=== PATIENT | female | born 1960 | race Caucasian/White ===

== ENCOUNTER → 2017-05-23 22:16 | Outpatient (CLI) | payer OTHER, SELFPAY ==
[2017-05-27 06:42] LABS: HPV Reflexed? NOT INDICATED
== END ==
PROVIDERS: Family Provider Family Medicine; PCP Family Medicine; Visit Provider Obstetrics & Gynecology
DX: Z12.4 Encounter for screening for malignant neoplasm of cervix (principal)
CPT/HCPCS: 88175; G0145

== ENCOUNTER → 2018-08-13 12:31 | Outpatient (CLI) | payer BC, SELFPAY ==
--- NOTE | 2018-08-13 12:36 | MRI_ITS ---
HISTORY: Pancreatitis. Attention common bile duct. K 85.90 patient has attacks 3-4 findings a month for foreign half years. Attacks are intense with anterior abdominal pain and vomiting. Technique: 3 plane T2 localizer, axial T2 fat sat, coronal T1, slightly different axial T2 fat sat, axial T1, 3-D reformats of the biliary system, coronal T2 fat sat, MRCP coronal, 3-D reformats again and another 3-D reformats performed on the acquisition scanner. Tendons series. 2 a and 64 images. No comparison imaging of any kind. Findings: There is mild intrahepatic biliary ductal dilatation. The left hepatic duct, near its terminus, is dilated to 8 mm. At its junction with the right hepatic duct, to form the common hepatic duct, the lumen narrows to 3 mm, equating to a 60% stenosis. The 8 mm, is a focal dilatation to the lumen. The most downstream portions of the right hepatic duct is only 4 mm, suggesting that the stenosis is actually only 25%, and the 8 mm dilatation is focal upstream dilatation to a stenosis. Overall the left hepatic ducts centrally are dilated to a slightly greater degree than the right. There is evidence of some irregular luminal contours, to the right system as well however. The gallbladder has been resected. A tiny cystic duct remnant is present. The common bile duct at its origin is slightly dilated to 8 mm. Within the pancreas, the common bile duct narrows to 4 mm. The pancreatic duct is normal. The common duct is normal. The duodenum is not abnormally dilated. The stomach is decompressed. The liver, spleen, pancreas, adrenal glands are normal. The aorta is without aneurysm. The kidneys may be mildly atrophic. The IVC is normal. Bowel gas pattern is normal. Visualized portions of spinal canal are widely patent. Lung bases are clear without effusions. MRI/MRCP Abdomen without Contrast IMPRESSION: Intra-and extrahepatic biliary ductal dilatation. The greatest dilatation of the intrahepatic bile ducts is to the downstream portion of the left hepatic duct 8 mm. Is 8 mm dilatation is likely a dilatation above the stenosis. There is perhaps a 25% stenosis to the downstream portion of the left hepatic duct where it joins to form the common hepatic duct. There is some irregular contour throughout the liver and both left and right ducts suggesting possible cholangitis either acute or chronic. The common bile duct distally, within the pancreatic head, just cranial to the common duct, is normal at 4 mm. Slight dilatation to the common bile duct is not uncommon post cholecystectomy as in this case. No choledocholithiasis. at 0250 Reported and signed by: Gray Valdes MD Electronically Signed: Gray Valdes MD at 2:49 EDT Tel , Service support ,
== END ==
PROVIDERS: Family Provider Nurse Practitioner Primary Care; PCP Nurse Practitioner Primary Care; Referring Provider Internal Medicine Gastroenterology; Visit Provider Internal Medicine Gastroenterology
DX: K85.90 Acute pancreatitis without necrosis or infection, unspecified (principal)
CPT/HCPCS: 74181

== ENCOUNTER 2020-05-27 17:09 | Observation (INO) | payer OTHER, SELFPAY ==
--- NOTE | 2020-05-19 13:57 | RAD_ITS ---
STUDY: X-RAY CHEST REASON FOR EXAM: Female, 59 years old. Preoperative evaluation. TECHNIQUE: Frontal and lateral views of the chest. COMPARISON: 08/18/2010 FINDINGS: The lungs are clear and expanded. There is no demonstrated pleural abnormality. Normal size heart. Normal mediastinum and rosalva. Normal visualized pulmonary arteries. Normal visualized aortic arch and descending thoracic aorta. Normal visualized thoracic spine. Normal visualized ribs, clavicles, and shoulders. There is no demonstrated abnormality of the visualized soft tissue structures of the upper abdomen. RAD/Chest PA and Lateral IMPRESSION: No interval change and no acute or active cardiopulmonary disease. Electronically Signed: Sergey Seth MD at 16:00 EST , Service support ,
[2020-05-27] VITALS (14 sets, daily range): BP systolic 100–147; BP diastolic 55–80; PULSE 52–92; RESP 16–20; TEMP 35.7–36.9; O2SAT 96–100; BMI 29.5
[2020-05-27] MEDS: Lactated Ringers 1,000 ML 100 ML IV ×4 (10:48→18:11)
[2020-05-27 11:20] LABS: Potassium 3.9 mmol/L (3.5-5.1)
[2020-05-27] MEDS: Cefazolin 2 GM in 0.9% Normal Saline 100 ML IV (11:27)
--- NOTE | 2020-05-27 11:35 | RAD_ITS ---
STUDY: X-RAY - LUMBAR SPINE REASON FOR EXAM: Female, 59 years old. L3-L4 LAMINECTOMY TECHNIQUE: 2 cross table view(s) of the lumbar spine were obtained. COMPARISON: None FINDINGS: Crosstable lateral lumbar imaging is performed. Image 1 identifies the inferior endplate of L4. Image 2 identifies the L3-4 disc space. RAD/Spine 1 View Any Level IMPRESSION: Crosstable lateral lumbar imaging identifies the inferior endplate of L4 and the L3-4 disc space. Electronically Signed: Olena Iglesias MD at 15:50 EDT , Service support ,
[2020-05-27] MEDS: Thrombin 5,000 IU Kit (PSA) 5,000 IU Vial 5000 IU TOPICAL (12:49)
[2020-05-27] MEDS: Bupivacaine 0.25% 30 ML Vial (14:45)
--- NOTE | 2020-05-27 14:59 | OP.PCM_ITS ---
Problem List (1) Spondylosis of lumbar spine Status: Acute Report of Operation Date of Procedure: 05/27/20 Pre-Operative Diagnosis: 1. Lumbar spondylosis with stenosis, L3-4 and L4-5. 2. Lumbar degenerative disc disease L3-4 and L4-5 Post-Operative Diagnosis: 1. Lumbar spondylosis with stenosis, L3-4 and L4-5. 2. Lumbar degenerative disc disease L3-4 and L4-5 Surgery/Procedure Performed:: 1. Bilateral L3 laminectomy, foraminotomies, decompression of bilateral nerve roots. 2. Bilateral L4 laminectomy, foraminotomies, decompression of bilateral nerve roots Type of Anesthesia:: General Drains: Hemovac Estimated Blood Loss (mL): 75 Fluids Replaced: 2000 cc Description of Procedure: STATEMENT OF MEDICAL NECESSITY: The patient is a 59-year-old female with intractable back and leg pain. Image studies confirm above diagnosis. She has failed conservative treatment to include: medicine, therapy, and injections. The patient opted for operative intervention, understanding the risks to include, but not limited to infection, bleeding, damage to nerves, arteries, and veins, possibility of spinal fluid leak, continued pain, need for further surgery, deep vein thrombosis, pulmonary embolism, heart attack, risk of stroke, or . DESCRIPTION OF PROCEDURE: Before being wheeled in the operative suite, the patient's identity and surgery site were confirmed by the patient, staff, anesthesia and the surgeon. She was given preoperative antibiotics, Ancef, then the patient was wheeled into the operative suite and given the appropriate amount of sedation by anesthesia. The patient was transferred to the [place] operating table in the prone position. All bony prominences were padded accordingly. The lumbar spine was prepped and draped in standard surgical fashion. Freda huggers were not turned on until drapes were placed and sealed with Ioban. A Midline incision was made and taken down to the lumbodorsal fascia. This was divided and subperiosteal dissection taken down to the level of L3-4 and L4-5 facet joints. Deep retractors were placed. We began with the Baofeng sonix bone scalpel, then a series of rongeurs and Kerrisons removing the spinous process and lamina at L3, and L4. Then, foraminotomies were performed decompressing bilateral the L3 and L4 nerve roots. The incision was then thoroughly irrigated. Tissel was placed over the dura as a hemostatic agent. A deep drain was placed. Fascia was closed with #1 Vicryl, subcutaneous with 2-0 Vicryl, and skin with 2-0 nylon. Sterile dressing was applied with 4 x 4, ABD, and tape. Sponge, instrument, and needle counts were correct at the end of the case. The patient was extubated, taken to PACU without incident. - Complications None - Admit VTE Documentation VTE Present on Admission: No
--- NOTE | 2020-05-27 15:06 | PCM.DC.ORTHO ---
Discharge Diet: No Restrictions Discharge Activity: - - No repetitive bending twisting or lifting greater than 5 pounds May shower in (days): 1 - Must cover incision with waterproof dressing to shower Weight Bearing Status: Weight bearing as tolerated Call your doctor if your incision/area has: Continuous Slow Oozing, Sudden Increased Bleeding, Increased Pain/ Swelling, Increased Redness, Foul Smelling Discharge, Swelling at the incision site Call your doctor if you observe: Fever of 101 or Higher, Coldness, Increased Pain, Numbness or Tingling, Change in Color, Inability to urinate, Inability to have a bowel movement, Using more than one pad per hour, Shortness of breath, Dizziness, Fainting spells, Swelling in the ankles, Chest pain, Prolonged hiccoughing, Increased palpitations (irregular heartbeat), Calf discomfort, Uncontrolled pain Change Dressing in (Days):: 1 - Daily dressing changes with iodine to incision Cleanse incision/area with: Do not get Incision Wet, Keep Dressing Clean & Dry Allergies/Adverse Reactions: Allergies pirbuterol [From [employer]] Allergy (Verified 05/27/20 10:15) Other Tachycardia narcotics Adverse Reaction (Uncoded 05/27/20 10:16) Vomiting Medications to take at Discharge Biotin 5,000 mcg SL 05/13/20 Cholecalciferol (Vitamin D3) [Vitamin D3] 05/13/20 Diltiazem [Cardizem] 180 mg PO QHS 05/13/20 Iron Carbonyl [Feosol] 45 mg PO 05/13/20 Magnesium 400 mg PO 05/13/20 Mecobalamin [B12 Active] QWEEK 05/13/20 Multivitamin with Iron [Daily Vitamin + Iron] 05/13/20 Zinc 05/13/20 Primary Care Physician: Lelia Garcia [employer], [employer] [Primary Care Provider] - Test Results: Test results from this visit will be discussed in further detail at your follow-up appointment, if applicable. Please Follow Up With: Kavon Brown DO - 3 weeks
--- NOTE | 2020-05-27 15:26 | PCM.PN.ORT ---
Patient Problems: Active and Suspected Problems Spondylosis of lumbar spine (Acute) Subjective: The patient was seen and examined postoperatively in the PACU. She is resting comfortably. Her pain is controlled. She has no complaints. - Physical Exam Vitals/I&O's: Vital Signs Temp Pulse Resp BP Pulse Ox 96.3 F L 62 18 117/55 L 100 05/27/20 15:09 05/27/20 15:15 05/27/20 15:15 05/27/20 15:15 05/27/20 15:15 Oxygen Flow Rate (L/min) 6 Oxygen Delivery Method Simple Mask Weight: 161 lb 9.581 oz Body Mass Index (BMI) 29.5 Intake and Output for Last 24 Hours 05/25/20 05/26/20 05/27/20 23:59 23:59 23:59 Output Total 175 / 175 Balance -175 / -175 General: Alert, Oriented x3, Cooperative, No apparent distress HEENT: PERRLA, EOMI Neck: Supple, No JVD Lungs: Normal air movement Cardiovascular: Regular rate Abdomen: Soft, Non Tender Extremities: No cyanosis, Capillary Refill Less than 3 Seconds Skin: - - Dressing clean dry and intact, drain in place and functioning Neurological: Cranial nerves II-XII grossly intact, Deep Tendon Reflexes 2+/4 and Symmetrical, Neuro grossly intact, Motor Exam 5/5 strength throughout, Sensory exam intact to light touch and pain Psych/Mental Status: Normal Affect, Appropriate Microbiology Past 72 Hours 05/26/20 12:40 Interface Orders SARS-CoV-2 Antigen (Rapid) - Final Laboratory Results 05/27/20 11:05: Potassium 3.9 Current Medications Acetaminophen (Acetaminophen 500 Mg Tablet) 1,000 mg PO Q8 [facility] Enteral Nutritional Formula (Ensure Surgery 237 Ml Liquid) 237 ml PO TIDCM [facility] Lactated Ringer's () 1,000 mls @ 100 mls/hr IV .Q10H [facility] Cefazolin Sodium () 1 gm in 50 mls @ 100 mls/hr IV Q8H [facility] Morphine Sulfate (Morphine 4 Mg/Ml Syringe) 2 - 4 mg IV Q4H PRN PRN PRN Reason: Pain Score 6-10 Oxycodone HCl (Oxycodone 5 Mg Tablet) 2.5 - 5 mg PO Q4H PRN PRN PRN Reason: Pain Score 6-10 Medical Necessity - Tobacco Use Smoking Status: Never smoker Assessment/Plan All Active Problems Spondylosis of lumbar spine (Acute) Status post L3 and L4 laminectomy Admit to floor See orders
[2020-05-27] MEDS: Ondansetron 4 MG/2 ML Vial IV (18:13)
--- NOTE | 2020-05-27 18:32 | PCM.PN.HOSP ---
Patient Problems: Active and Suspected Problems Spondylosis of lumbar spine (Acute) Reason for Visit: Consult for postop medical management Subjective: 59-year-old female with past medical history of hypertension, hyperlipidemia chronic back pain, who failed outpatient management including back injections. Patient was admitted for elective L3-L4 laminectomy, foraminotomies, decompression of bilateral nerve roots. Patient was seen in the immediate postop period. She denied any chest pain or dizziness or palpitations. Her pain is controlled, 2 out of 10. Objective: Physical exam: GEN: Alert, oriented x3, stable, not pale, not jaundiced, well hydrated CVS: HS I +II, regular, no murmurs RESP: CTA ABD: BS present, soft, non-tender, no palpable organs EXT: No edema COUNT ROOM CLERK: CN II-XII grossly intact Vitals/I&O's: Vital Signs Temp Pulse Resp BP Pulse Ox 97.7 F L 66 18 122/63 H 97 05/27/20 17:07 05/27/20 17:07 05/27/20 17:07 05/27/20 17:07 05/27/20 17:07 Oxygen Flow Rate (L/min) 2 Oxygen Delivery Method Nasal Cannula Weight: 73.3 kg Body Mass Index (BMI) 29.5 Intake and Output for Last 24 Hours 05/25/20 05/26/20 05/27/20 23:59 23:59 23:59 Intake Total 1999 / 1999 Output Total 325 / 325 Balance 1675 / 1675 Microbiology Past 72 Hours 05/26/20 12:40 Interface Orders SARS-CoV-2 Antigen (Rapid) - Final Laboratory Results 05/27/20 11:05: Potassium 3.9 Current Medications Acetaminophen (Acetaminophen 500 Mg Tablet) 1,000 mg PO Q8H PRN PRN Reason: PAIN 1-3 Enteral Nutritional Formula (Ensure Surgery 237 Ml Liquid) 237 ml PO TIDCM [facility] Last Admin: 05/27/20 17:55 Dose: Not Given Documented by: Lactated Ringer's () 1,000 mls @ 100 mls/hr IV .Q10H [facility] Last Admin: 05/27/20 18:11 Dose: 100 mls/hr Documented by: Cefazolin Sodium () 1 gm in 50 mls @ 100 mls/hr IV Q8H [facility] Morphine Sulfate (Morphine 4 Mg/Ml Syringe) 2 - 4 mg IV Q4H PRN PRN PRN Reason: Pain Score 7-10 Morphine Sulfate (Morphine 2 Mg/Ml Syringe) 2 - 4 mg IV Q4H PRN PRN PRN Reason: Pain Score 7-10 Ondansetron HCl (Ondansetron 4 Mg/2 Ml Vial) 4 mg IV Q6H PRN PRN PRN Reason: NAUSEA Last Admin: 05/27/20 18:13 Dose: 4 mg Documented by: Oxycodone HCl (Oxycodone 5 Mg Tablet) 2.5 - 5 mg PO Q4H PRN PRN PRN Reason: Pain Score 4-6 Sodium Chloride (0.9% Saline Lock 10 Ml Syringe) 10 - 40 ml IV UD PRN PRN Reason: SALINE FLUSH STROKE Vital Signs/Narrative: Vital Signs Temp Pulse Resp BP Pulse Ox 05/27/20 17:07 97.7 F L 66 18 122/63 H 97 05/27/20 16:42 97.9 F 55 L 18 116/71 100 05/27/20 16:30 52 L 18 110/63 100 05/27/20 16:15 53 L 18 115/72 100 05/27/20 16:00 59 L 18 117/77 100 05/27/20 15:45 56 L 18 100/75 100 05/27/20 15:30 61 18 112/80 100 05/27/20 15:15 62 18 117/55 L 100 05/27/20 15:09 96.3 F L 73 18 120/59 L 100 Medical Necessity - Tobacco Use Smoking Status: Never smoker Assessment/Plan All Active Problems Spondylosis of lumbar spine (Acute) 1. Postop day #0 status post bilateral L3-L4 laminectomies Pain is fairly controlled, continue on Tylenol, oxycodone and morphine as needed Continue with other neurosurgical recommendations 2. Hypertension, controlled, continue on home Cardizem, with holding parameters 3. DVT prophylaxis?per primary service [place] [place] E&M: [id number] Init Hosp L2
[2020-05-27] MEDS: Cefazolin 1 GM/50 ML BAG IV (20:36)
[2020-05-27] MEDS: oxyCODONE 5 MG Tablet PO (20:43)
[2020-05-27] MEDS: dilTIAZem CD 180 MG Capsule PO (20:50)
[2020-05-28] VITALS (16 sets, daily range): BP systolic 97–119; BP diastolic 42–64; PULSE 76–93; RESP 16–20; TEMP 36.6–37.6; O2SAT 92–98
[2020-05-28] MEDS: Ondansetron 4 MG/2 ML Vial IV ×2 (01:18→07:41)
[2020-05-28] MEDS: 0.9% Saline Lock 10 ML Syringe IV ×4 (01:18→14:35)
[2020-05-28] MEDS: oxyCODONE 5 MG Tablet PO ×3 (01:18→09:27)
[2020-05-28] MEDS: Cefazolin 1 GM/50 ML BAG IV (04:15)
[2020-05-28 06:39] LABS: Absolute Lymphocyte Count 1.33 X10^3/uL (0.83-4.51); Basophil# 0.04 X10^3/uL; Basophil% 0.2 % (0-1); Hematocrit 35.6 % (37-47); Hemoglobin 11.8 g/dL (12.0-15.0); Lymphocyte # 1.33 X10^3/ul (4.0); Lymphocyte % 7.6 % (19-41); Mean Corp Hgb Conc 33.1 g/dL (32-36); Mean Corpuscular Hgb 30.4 pg (27.0-32.0); Mean Corpuscular Volume 91.8 fL (81-99); Monocyte# 1.08 X10^3/uL; Monocyte% 6.2 % (0-10); NRBC Flagged by Analyzer 0 % (0-5); Neutrophil # 14.96 X10^3/uL (2.7-7.7); Neutrophil % 85.4 % (47-70); Platelet Count 208 K/mm3 (150-450); RBC Distribution Width CV 12.7 % (11.6-14.6); RBC Distribution Width SD 41.8 fl (35.1-43.9); Red Blood Count 3.88 M/mm3 (4.2-5.4); White Blood Count 17.5 K/mm3 (4.4-11.0)
[2020-05-28 07:21] LABS: ALB/GLOB Ratio 0.9 RATIO (0.9-2.4); AST(SGOT) 28 U/L (15-37); Alanine Aminotransfer ALT/SGPT 23 U/L (13-56); Albumin, Serum 3.1 g/dL (3.2-5.0); Alkaline Phosphatase 93 U/L (45-117); Anion Gap 8 (5-15); BUN 24 mg/dL (7-18); Calcium,Total 8.9 mg/dL (8.5-10.1); Chloride 102 mmol/L (98-107); Creatinine, Serum 1.41 mg/dL (0.55-1.02); EST Glomerular Filtration Rate 40 mL/min (>60); Est Glom Filt Rate - Afr Amer 49 mL/min (>60); Estimated Creatinine Clearance 33.14 ml/min; Globulin 3.4 g/dL (2.2-4.2); Glucose 153 mg/dL (74-106); Potassium 4.7 mmol/L (3.5-5.1); Protein, Total 6.5 g/dL (6.4-8.2); Sodium Level 139 mmol/L (136-145)
--- NOTE | 2020-05-28 07:30 | NURSING ---
Dr. Brown to see patient and hemovac drain removed per MD. Pt javi well. Pt sitting in chair, given prn zofran for nausea. Pt c/o dry mouth and ice chips at bedside. Pt aware of plan of care and potential discharge order today. No further needs voiced at this time. Call light in reach.
--- NOTE | 2020-05-28 07:40 | DS.PCM_ITS ---
Discharge Date and Diagnosis - Problem List Patient Problems: Active and Suspected Problems Spondylosis of lumbar spine (Acute) Date of Admission: 05/27/20 Date of Discharge: 05/28/20 - Primary Discharge Diagnosis Acute Problems: Active Problems Spondylosis of lumbar spine (Acute) Hospital Course and Treatment Hospitalist for medical management Operations: - - Lumbar 3 lumbar 4 laminectomy decompression Summary of Care Provided: The patient is a 59 year old F who underwent lumbar 3 lumbar 4 laminectomy decompression on 05/27/2020. She was subsequently admitted. Her pain was well controlled. Her drain and Houser catheter were removed on 05/28/2020. The hospitalist was consulted for medical management. No medical issues were reported. She was mobilizing well postop day 1. She was discharged home on 05/28/2020 to follow-up in the clinic in [address] Brown for suture removal. Activity restrictions were given including no repetitive bending twisting or lifting greater than 5 pounds. Incision care instructions were given including daily dry dressing changes with iodine. [] Patient Problems: Active and Suspected Problems Spondylosis of lumbar spine (Acute) Subjective: The patient was seen and examined postoperative day 1 status post L3 and L4 laminectomy. She is up in a chair and resting comfortably. She is having some postop soreness at her surgery site. She denies any other complaints including numbness tingling weakness or changes in bowel or bladder function. She was having some episodes of nausea with the pain medications which were relieved with Zofran. - Physical Exam Vitals/I&O's: Vital Signs Temp Pulse Resp BP Pulse Ox 99.6 F H 87 16 112/42 L 98 05/28/20 05:07 05/28/20 06:00 05/28/20 05:07 05/28/20 05:07 05/28/20 05:07 Oxygen Flow Rate (L/min) 2 Oxygen Delivery Method Nasal Cannula Weight: 161 lb 9.581 oz Body Mass Index (BMI) 29.5 Intake and Output for Last 24 Hours 05/26/20 05/27/20 05/28/20 23:59 23:59 23:59 Intake Total 3156.67 / 3156.67 950 / 950 Output Total 577 / 1577 1550 / 1550 Balance 2579.67 / 1579.67 -600 / -600 General: Alert, Oriented x3 HEENT: PERRLA, EOMI Neck: Supple, No JVD Lungs: Normal air movement Cardiovascular: Regular rate Abdomen: Soft, Non Tender Extremities: No cyanosis, No edema, Capillary Refill Less than 3 Seconds, No Calf Tenderness Skin: - - Dressing clean dry and intact. Drain in place and functioning. Drain has minimal output and was removed this morning. Incision is well approximated with interrupted sutures in place. No erythema. Minimal tenderness. No drainage or fluctuance. Neurological: Cranial nerves II-XII grossly intact, Deep Tendon Reflexes 2+/4 and Symmetrical, Neuro grossly intact, Motor Exam 5/5 strength throughout, Sensory exam intact to light touch and pain Psych/Mental Status: Normal Affect, Appropriate Microbiology Past 72 Hours 05/26/20 12:40 Interface Orders SARS-CoV-2 Antigen (Rapid) - Final Laboratory Results 05/27/20 11:05: Potassium 3.9 05/28/20 06:10: WBC 17.5 H, RBC 3.88 L, Hgb 11.8 L, Hct 35.6 L, MCV 91.8, MCH 30.4, MCHC 33.1, RDW Std Deviation 41.8, RDW Coeff of Magan 12.7, Plt Count 208, MPV 10.0, Immature Gran % (Auto) 0.600, Neut % (Auto) 85.4 H, Lymph % (Auto) 7.6 L, [place] % (Auto) 6.2, Eos % (Auto) 0.0, Baso % (Auto) 0.2, Absolute Neuts (auto) 15.0 H, Absolute Lymphs (auto) 1.33, Nucleated RBC % 0 05/28/20 06:10: Sodium 139, Potassium 4.7, Chloride 102, Carbon Dioxide 29.0, Anion Gap 8, BUN 24 H, Creatinine 1.41 H, Estim Creat Clear Calc 33.14, Est GFR (MDRD) Af Amer 49 L, Est GFR (MDRD) Non-Af 40 L, BUN/Creatinine Ratio 17.0, Glucose 153 H, Calcium 8.9, Total Bilirubin 0.40, AST 28, ALT 23, Alkaline Phosphatase 93, Total Protein 6.5, Albumin 3.1 L, Globulin 3.4, Albumin/Globulin Ratio 0.9 Current Medications Acetaminophen (Acetaminophen 500 Mg Tablet) 1,000 mg PO Q8H PRN PRN Reason: PAIN 1-3 Diltiazem HCl (Diltiazem Cd 180 Mg Capsule) 180 mg PO QHS [facility] Last Admin: 05/27/20 20:50 Dose: 180 mg Documented by: Enteral Nutritional Formula (Ensure Surgery 237 Ml Liquid) 237 ml PO TIDCM [facility] Last Admin: 05/27/20 17:55 Dose: Not Given Documented by: Lactated Ringer's () 1,000 mls @ 100 mls/hr IV .Q10H [facility] Last Infusion: 05/28/20 05:24 Dose: 15 mls/hr Documented by: Morphine Sulfate (Morphine 4 Mg/Ml Syringe) 2 - 4 mg IV Q4H PRN PRN PRN Reason: Pain Score 7-10 Morphine Sulfate (Morphine 2 Mg/Ml Syringe) 2 - 4 mg IV Q4H PRN PRN PRN Reason: Pain Score 7-10 Ondansetron HCl (Ondansetron 4 Mg/2 Ml Vial) 4 mg IV Q6H PRN PRN PRN Reason: NAUSEA Last Admin: 05/28/20 01:18 Dose: 4 mg Documented by: Oxycodone HCl (Oxycodone 5 Mg Tablet) 2.5 - 5 mg PO Q4H PRN PRN PRN Reason: Pain Score 4-6 Last Admin: 05/28/20 05:23 Dose: 5 mg Documented by: Sodium Chloride (0.9% Saline Lock 10 Ml Syringe) 10 - 40 ml IV UD PRN PRN Reason: SALINE FLUSH Last Admin: 05/28/20 01:18 Dose: 10 ml Documented by: Discharge Diet: No Restrictions Discharge Activity: - - No repetitive bending twisting or lifting greater than 5 pounds May shower in (days): 1 - Must cover incision with waterproof dressing to shower Weight Bearing Status: Weight bearing as tolerated Call your doctor if your incision/area has: Continuous Slow Oozing, Sudden Increased Bleeding, Increased Pain/ Swelling, Increased Redness, Foul Smelling Discharge, Swelling at the incision site Call your doctor if you observe: Fever of 101 or Higher, Coldness, Increased Pain, Numbness or Tingling, Change in Color, Inability to urinate, Inability to have a bowel movement, Using more than one pad per hour, Shortness of breath, Dizziness, Fainting spells, Swelling in the ankles, Chest pain, Prolonged hiccoughing, Increased palpitations (irregular heartbeat), Calf discomfort, Uncontrolled pain Change Dressing in (Days):: 1 - Daily dressing changes with iodine to incision Cleanse incision/area with: Do not get Incision Wet, Keep Dressing Clean & Dry Home Medications: Medications to take at Discharge Biotin 5,000 mcg SL 05/13/20 Cholecalciferol (Vitamin D3) [Vitamin D3] 05/13/20 Diltiazem [Cardizem] 180 mg PO QHS 05/13/20 Iron Carbonyl [Feosol] 45 mg PO 05/13/20 Magnesium 400 mg PO 05/13/20 Mecobalamin [B12 Active] QWEEK 05/13/20 Multivitamin with Iron [Daily Vitamin + Iron] 05/13/20 Zinc 05/13/20 Oxycodone HCl/Acetaminophen [Percocet 5/325] 1 - 2 tablet PO Q6H PRN PRN 7 Days #60 tablet 05/27/20 Ondansetron [Zofran Odt] 4 mg PO Q8H PRN PRN 30 Days #90 tablet 05/28/20 Following Prescriptions Were Given to Patient: Oxycodone HCl/Acetaminophen [Percocet 5/325] 1 - 2 tablet PO Q6H PRN PRN 7 Days #60 tablet PRN Reason: Pain Transmission Status: Received by [facility] Ondansetron [Zofran Odt] 4 mg PO Q8H PRN PRN 30 Days #90 tablet PRN Reason: Nausea Transmission Status: Pending to [facility] Primary Care Physician: Lelia Garcia [employer], [employer] [Primary Care Provider] - Please Follow Up With: Kavon Brown DO - 3 weeks Minutes spent on discharge:: 20 Patient Condition:: Good Medical Necessity - Tobacco Use Smoking Status: Never smoker Meaningful Use Info Meaningful Use Diagnoses (Choose all that apply): None applicable
[2020-05-28] MEDS: Ensure Surgery 237 ML LIQUID PO ×2 (08:34→17:35)
[2020-05-28] MEDS: cycloBENZAPRine HCl 10 MG Tablet PO (08:34)
[2020-05-28] MEDS: Acetaminophen 325 MG Tablet PO ×2 (09:26→15:38)
--- NOTE | 2020-05-28 09:35 | NURSING ---
[facility]
--- NOTE | 2020-05-28 10:35 | CASEMGMT ---
RN CM Face to Face with patient for initial transition planning/care coordination assessment. RN CM introduced self and role at [facility]. Patient sitting in chair, alert and oriented. Patient willing to participate in assessment and is able to answer all questions appropriately. Care providers, pharmacy, and demographics verified. Patient wishes to discharge home, denies need for home health at this time. Patient states she has no further needs or concerns at this time. CM to follow for discharge planning needs that may arise. PCP: Lelia Garcia Specialists: Dr Borja Musical [employer] Maker Gabbi/Sage Martinez, surgeon Preferred Pharmacy: [facility] Insurance: [facility] Prescription Benefit: yes Living Will/HPOA: yes, Mukesh Barber HPOA LNOK: Living Arrangements: Patient lives with in a 2 story home with bed and bath on first floor. 2 steps to enter the home. Patient states she was independent at home prior to surgery. Transportation: DME/HHC: Patient states she has BSC, cane, walker at home. Patient denies previous HHC or SNF Disposition Plan: Patient to discharge home with family support and follow-up plans in place. Iens HILLMAN, RN, CM
--- NOTE | 2020-05-28 13:57 | PN_ITS ---
Patient Problems: Active and Suspected Problems Spondylosis of lumbar spine (Acute) Subjective: Developed back pain upon standing today. Vitals/I&O's: Vital Signs Temp Pulse Resp BP Pulse Ox 36.6 C 93 18 105/59 L 95 05/28/20 10:00 05/28/20 10:00 05/28/20 10:00 05/28/20 10:00 05/28/20 10:00 Oxygen Flow Rate (L/min) 2 Oxygen Delivery Method Room Air Weight: 73.3 kg Body Mass Index (BMI) 29.5 Intake and Output for Last 24 Hours 05/26/20 05/27/20 05/28/20 23:59 23:59 23:59 Intake Total 3156.67 / 3156.67 1011.5 / 1011.5 Output Total 577 / 1577 1800 / 1800 Balance 2579.67 / 1579.67 -788.5 / -788.5 General: Alert, No apparent distress HEENT: Atraumatic, Normocephalic Oral: Moist Mucosa, No Gingival or Mucosal Lesions/ Ulcerations Neck: No Nodes, Thyroid Normal Size and Texture Lungs: Clear to auscultation, Normal air movement, No rhonchi, No wheeze Cardiovascular: Regular rate, Regular Rhythm, Normal S1, Normal S2, No murmurs Abdomen: Bowel Sounds Present, Soft, Non Tender, Non-Distended, No Hepato- splenomegaly Extremities: No edema, No Calf Tenderness Skin: No rashes, No breakdown Musculoskeletal: No Tenderness to Palpation of Joints or Extremities, No Muscle Wasting, - - Reproducible right-sided lower lumbar paraspinal tenderness. No point tenderness noted. Psych/Mental Status: Normal Affect, Appropriate Microbiology Past 72 Hours 05/26/20 12:40 Interface Orders SARS-CoV-2 Antigen (Rapid) - Final Laboratory Results 05/28/20 06:10: WBC 17.5 H, RBC 3.88 L, Hgb 11.8 L, Hct 35.6 L, MCV 91.8, MCH 30.4, MCHC 33.1, RDW Std Deviation 41.8, RDW Coeff of Magan 12.7, Plt Count 208, MPV 10.0, Immature Gran % (Auto) 0.600, Neut % (Auto) 85.4 H, Lymph % (Auto) 7.6 L, [place] % (Auto) 6.2, Eos % (Auto) 0.0, Baso % (Auto) 0.2, Absolute Neuts (auto) 15.0 H, Absolute Lymphs (auto) 1.33, Nucleated RBC % 0 05/28/20 06:10: Sodium 139, Potassium 4.7, Chloride 102, Carbon Dioxide 29.0, Anion Gap 8, BUN 24 H, Creatinine 1.41 H, Estim Creat Clear Calc 33.14, Est GFR (MDRD) Af Amer 49 L, Est GFR (MDRD) Non-Af 40 L, BUN/Creatinine Ratio 17.0, Glucose 153 H, Calcium 8.9, Total Bilirubin 0.40, AST 28, ALT 23, Alkaline Phosphatase 93, Total Protein 6.5, Albumin 3.1 L, Globulin 3.4, Albumin/Globulin Ratio 0.9 Current Medications Acetaminophen (Acetaminophen 325 Mg Tablet) 325 mg PO Q4H PRN PRN PRN Reason: pain 1-3 Last Admin: 05/28/20 09:26 Dose: 325 mg Documented by: Cyclobenzaprine HCl (Cyclobenzaprine Hcl 10 Mg Tablet) 10 mg PO TID PRN PRN PRN Reason: MUSCLE SPASM Last Admin: 05/28/20 08:34 Dose: 10 mg Documented by: Diltiazem HCl (Diltiazem Cd 180 Mg Capsule) 180 mg PO QHS [facility] Last Admin: 05/27/20 20:50 Dose: 180 mg Documented by: Enteral Nutritional Formula (Ensure Surgery 237 Ml Liquid) 237 ml PO TIUTM [facility] Last Admin: 05/28/20 08:34 Dose: 237 ml Documented by: Morphine Sulfate (Morphine 4 Mg/Ml Syringe) 2 - 4 mg IV Q4H PRN PRN PRN Reason: Pain Score 7-10 Morphine Sulfate (Morphine 2 Mg/Ml Syringe) 2 - 4 mg IV Q4H PRN PRN PRN Reason: Pain Score 7-10 Ondansetron HCl (Ondansetron 4 Mg/2 Ml Vial) 4 mg IV Q6H PRN PRN PRN Reason: NAUSEA Last Admin: 05/28/20 07:41 Dose: 4 mg Documented by: Oxycodone HCl (Oxycodone 5 Mg Tablet) 2.5 - 5 mg PO Q4H PRN PRN PRN Reason: Pain Score 4-6 Last Admin: 05/28/20 09:27 Dose: 5 mg Documented by: Sodium Chloride (0.9% Saline Lock 10 Ml Syringe) 10 - 40 ml IV UD PRN PRN Reason: SALINE FLUSH Last Admin: 05/28/20 09:34 Dose: 10 ml Documented by: STROKE Vital Signs/Narrative: Vital Signs Temp Pulse Resp BP Pulse Ox 05/28/20 10:00 36.6 C 93 18 105/59 L 95 Medical Necessity - Tobacco Use Smoking Status: Never smoker Assessment/Plan All Active Problems Spondylosis of lumbar spine (Acute) 1. Suspected muscle spasm of the paraspinal muscles. She began if the patient stood up. Likely exacerbated by the patient's surgery as well. She added cyclobenzaprine to help. 2. Hypertension: Stable. 3. Status post bilateral L3-L4 laminectomies. Management per spine. Medically stable for discharge. Inpatient E&M: 30397 Subs Hosp L2
[2020-05-28] MEDS: Lactated Ringers 500 ML 999 ML IV (14:32)
--- NOTE | 2020-05-28 16:29 | PHA.DC.MC ---
Pharmacy Service has performed discharge medication reconciliation and counseling for this patient. 1. ONDANSETRON 4MG PO Q8H PRN NAUSEA 2. OXYCODONE/ACETAMINOPHEN 5/325MG 1-2T PO Q6H PRN PAIN The patient's discharge medication list was reviewed for discrepancies and discrepancies were resolved. Home Medications Biotin 5,000 mcg SL 05/13/20 Cholecalciferol (Vitamin D3) [Vitamin D3] 05/13/20 Diltiazem [Cardizem] 180 mg PO QHS 05/13/20 Iron Carbonyl [Feosol] 45 mg PO 05/13/20 Magnesium 400 mg PO 05/13/20 Mecobalamin [B12 Active] QWEEK 05/13/20 Multivitamin with Iron [Daily Vitamin + Iron] 05/13/20 Zinc 05/13/20 Oxycodone HCl/Acetaminophen [Percocet 5/325] 1 - 2 tablet PO Q6H PRN PRN 7 Days #60 tablet 05/27/20 Ondansetron [Zofran Odt] 4 mg PO Q8H PRN PRN 30 Days #90 tablet 05/28/20 The patient was counseled on the following discharge medications and changes in medications for homegoing were reviewed. The Reason for Use, instructions for use, and potential side effects were reviewed for all new medications. The patient's questions regarding all of their medications were answered. The patient was able to verbally demonstrate an understanding of their discharge medications.
[2020-05-28] MEDS: HYDROcodone Bitartrate/Apap 5/325 Tablet PO ×2 (17:34→21:50)
[2020-05-28] MEDS: Lactated Ringers 1,000 ML 100 ML IV (19:45)
[2020-05-28] MEDS: dilTIAZem CD 180 MG Capsule PO (21:51)
[2020-05-29] VITALS (10 sets, daily range): BP systolic 110–141; BP diastolic 64–78; PULSE 62–90; RESP 16–18; TEMP 36.7–37.2; O2SAT 94–97
[2020-05-29] MEDS: HYDROcodone Bitartrate/Apap 5/325 Tablet PO ×3 (03:28→07:51)
[2020-05-29] MEDS: Lactated Ringers 1,000 ML 100 ML IV ×2 (05:53→14:12)
[2020-05-29] MEDS: cycloBENZAPRine HCl 10 MG Tablet PO ×2 (07:43→20:28)
[2020-05-29] MEDS: Ketorolac 30 MG/ML Syringe IV (09:00)
[2020-05-29] MEDS: dexAMETHasone 4 MG/ML Vial IV (09:01)
--- NOTE | 2020-05-29 09:45 | PN.ORTHO_ITS ---
Patient Problems: Active and Suspected Problems Spondylosis of lumbar spine (Acute) Subjective: The patient was seen and examined. She is postop day 2 status post L3 and L4 laminectomy decompression. She is doing well and was scheduled for discharge yesterday. However she had an episode of hypotension as well as increasing pain in the gluteal region with activity. She was kept overnight for pain control. Her hypotension resolved with IV fluid administration. She is currently resting comfortably in bed eating breakfast. Her pain is well controlled at this time. She is mobilizing well with physical therapy and walked the halls yesterday. She has no new complaints today. She denies any acute numbness tingling weakn ess or changes in bowel or bladder function. - Physical Exam Vitals/I&O's: Vital Signs Temp Pulse Resp BP Pulse Ox 98.3 F 90 18 124/64 H 94 05/29/20 09:12 05/29/20 09:12 05/29/20 09:12 05/29/20 09:12 05/29/20 09:12 Oxygen Flow Rate (L/min) 2 Oxygen Delivery Method Room Air Weight: 161 lb 9.581 oz Body Mass Index (BMI) 29.5 Intake and Output for Last 24 Hours 05/27/20 05/28/20 05/29/20 23:59 23:59 23:59 Intake Total 3156.67 / 3156.67 2411.5 / 2411.5 1100 / 1100 Output Total 577 / 1577 2350 / 2350 100 / 100 Balance 2579.67 / 1579.67 61.5 / 61.5 1000 / 1000 General: Alert, Oriented x3, No apparent distress HEENT: PERRLA, EOMI Neck: Supple, No JVD Lungs: Normal air movement Cardiovascular: Regular rate Abdomen: Soft, Non Tender Extremities: No cyanosis, Capillary Refill Less than 3 Seconds, No Calf Tenderness Skin: - - Dressing clean dry and intact. Minimal swelling around the incision site. Minimal tenderness. Neurological: Cranial nerves II-XII grossly intact, Deep Tendon Reflexes 2+/4 and Symmetrical, Neuro grossly intact, Motor Exam 5/5 strength throughout, S ensory exam intact to light touch and pain Psych/Mental Status: Normal Affect, Appropriate Microbiology Past 72 Hours 05/26/20 12:40 Interface Orders SARS-CoV-2 Antigen (Rapid) - Final Current Medications Acetaminophen (Acetaminophen 325 Mg Tablet) 325 mg PO Q4H PRN PRN PRN Reason: pain 1-3 Last Admin: 05/28/20 15:38 Dose: 325 mg Documented by: Hydrocodone Bitart/Acetaminophen (Hydrocodone Bitartrate/Apap 5/325 Tablet) 1 - 2 tablet PO Q4H PRN PRN PRN Reason: Pain Score 1-10 Last Admin: 05/29/20 07:51 Dose: 1 tablet Documented by: Cyclobenzaprine HCl (Cyclobenzaprine Hcl 10 Mg Tablet) 10 mg PO TID PRN PRN PRN Reason: MUSCLE SPASM Last Admin: 05/29/20 07:43 Dose: 10 mg Documented by: Diltiazem HCl (Diltiazem Cd 180 Mg Capsule) 180 mg PO QHS [facility] Last Admin: 05/28/20 21:51 Dose: 180 mg Documented by: Enteral Nutritional Formula (Ensure Surgery 237 Ml Liquid) 237 ml PO TIDCM [facility] Last Admin: 05/29/20 09:08 Dose: Not Given Documented by: Lactated Ringer's () 1,000 mls @ 100 mls/hr IV .Q10H [facility] Last Admin: 05/29/20 05:53 Dose: 100 mls/hr Documented by: Morphine Sulfate (Morphine 4 Mg/Ml Syringe) 2 - 4 mg IV Q4H PRN PRN PRN Reason: Pain Score 7-10 Morphine Sulfate (Morphine 2 Mg/Ml Syringe) 2 - 4 mg IV Q4H PRN PRN PRN Reason: Pain Score 7-10 Ondansetron HCl (Ondansetron 4 Mg/2 Ml Vial) 4 mg IV Q6H PRN PRN PRN Reason: NAUSEA Last Admin: 05/28/20 07:41 Dose: 4 mg Documented by: Oxycodone HCl (Oxycodone 5 Mg Tablet) 2.5 - 5 mg PO Q4H PRN PRN PRN Reason: Pain Score 4-6 Last Admin: 05/28/20 09:27 Dose: 5 mg Documented by: Sodium Chloride (0.9% Saline Lock 10 Ml Syringe) 10 - 40 ml IV UD PRN PRN Reason: SALINE FLUSH Last Admin: 05/28/20 14:35 Dose: 10 ml Documented by: Medical Necessity - Tobacco Use Smoking Status: Never smoker Assessment/Plan All Active Problems Spondylosis of lumbar spine (Acute) #1 postop day 2 status post L3 and L4 laminectomy decompression 2. Continue pain control and mobilization. Add IV Decadron and Toradol. 3. Discharge planning, home when pain controlled
--- NOTE | 2020-05-29 11:20 | PN_ITS ---
Patient Problems: Active and Suspected Problems Spondylosis of lumbar spine (Acute) Subjective: developed intense pain down her left leg. Vitals/I&O's: Vital Signs Temp Pulse Resp BP Pulse Ox 36.8 C 90 18 124/64 H 94 05/29/20 09:12 05/29/20 09:12 05/29/20 09:12 05/29/20 09:12 05/29/20 09:12 Oxygen Flow Rate (L/min) 2 Oxygen Delivery Method Room Air Weight: 73.3 kg Body Mass Index (BMI) 29.5 Intake and Output for Last 24 Hours 05/27/20 05/28/20 05/29/20 23:59 23:59 23:59 Intake Total 3156.67 / 3156.67 2411.5 / 2411.5 1100 / 1100 Output Total 577 / 1577 2350 / 2350 100 / 100 Balance 2579.67 / 1579.67 61.5 / 61.5 1000 / 1000 General: Alert, No apparent distress HEENT: Atraumatic, Normocephalic Oral: Moist Mucosa, No Gingival or Mucosal Lesions/ Ulcerations Neck: No Nodes, Thyroid Normal Size and Texture Lungs: Clear to auscultation, Normal air movement, No rhonchi, No wheeze Cardiovascular: Regular rate, Regular Rhythm, Normal S1, Normal S2, No murmurs Abdomen: Bowel Sounds Present, Soft, Non Tender, Non-Distended Extremities: No edema, No Calf Tenderness Neurological: Motor Exam 5/5 strength throughout Comment: required some assistance to sit up to have breakfast. Microbiology Past 72 Hours 05/26/20 12:40 Interface Orders SARS-CoV-2 Antigen (Rapid) - Final Current Medications Acetaminophen (Acetaminophen 325 Mg Tablet) 325 mg PO Q4H PRN PRN PRN Reason: pain 1-3 Last Admin: 05/28/20 15:38 Dose: 325 mg Documented by: Hydrocodone Bitart/Acetaminophen (Hydrocodone Bitartrate/Apap 5/325 Tablet) 1 - 2 tablet PO Q4H PRN PRN PRN Reason: Pain Score 1-10 Last Admin: 05/29/20 07:51 Dose: 1 tablet Documented by: Cyclobenzaprine HCl (Cyclobenzaprine Hcl 10 Mg Tablet) 10 mg PO TID PRN PRN PRN Reason: MUSCLE SPASM Last Admin: 05/29/20 07:43 Dose: 10 mg Documented by: Diltiazem HCl (Diltiazem Cd 180 Mg Capsule) 180 mg PO QHS [facility] Last Admin: 05/28/20 21:51 Dose: 180 mg Documented by: Enteral Nutritional Formula (Ensure Surgery 237 Ml Liquid) 237 ml PO TIDCM [facility] Last Admin: 05/29/20 09:08 Dose: Not Given Documented by: Lactated Ringer's () 1,000 mls @ 100 mls/hr IV .Q10H [facility] Last Admin: 05/29/20 05:53 Dose: 100 mls/hr Documented by: Morphine Sulfate (Morphine 4 Mg/Ml Syringe) 2 - 4 mg IV Q4H PRN PRN PRN Reason: Pain Score 7-10 Morphine Sulfate (Morphine 2 Mg/Ml Syringe) 2 - 4 mg IV Q4H PRN PRN PRN Reason: Pain Score 7-10 Ondansetron HCl (Ondansetron 4 Mg/2 Ml Vial) 4 mg IV Q6H PRN PRN PRN Reason: NAUSEA Last Admin: 05/28/20 07:41 Dose: 4 mg Documented by: Oxycodone HCl (Oxycodone 5 Mg Tablet) 2.5 - 5 mg PO Q4H PRN PRN PRN Reason: Pain Score 4-6 Last Admin: 05/28/20 09:27 Dose: 5 mg Documented by: Sodium Chloride (0.9% Saline Lock 10 Ml Syringe) 10 - 40 ml IV UD PRN PRN Reason: SALINE FLUSH Last Admin: 05/28/20 14:35 Dose: 10 ml Documented by: STROKE Vital Signs/Narrative: Vital Signs Temp Pulse Resp BP Pulse Ox 05/29/20 09:12 36.8 C 90 18 124/64 H 94 05/29/20 09:10 94 05/29/20 09:09 71 Medical Necessity - Tobacco Use Smoking Status: Never smoker Assessment/Plan All Active Problems Spondylosis of lumbar spine (Acute) 1. left leg pain different than the pain she had earlier on 05/28 when I saw her radicular distribution Received a x1 dose of dexamethasone and ketorolac today DC cyclobenzaprine optimize oxycodone, DC [place] 2. Hypertension: Stable. 3. Status post bilateral L3-L4 laminectomies. Management per spine. Inpatient E&M: 29999 Subs Hosp L2
[2020-05-29] MEDS: Acetaminophen 325 MG Tablet PO ×2 (14:11→20:28)
[2020-05-29] MEDS: oxyCODONE 5 MG Tablet 10 MG PO ×2 (14:11→20:28)
[2020-05-29] MEDS: dilTIAZem CD 180 MG Capsule PO (20:28)
[2020-05-30] MEDS: oxyCODONE 5 MG Tablet 10 MG PO ×4 (01:18→13:37)
[2020-05-30 04:03] VITALS: PULSE 64
[2020-05-30 05:30] VITALS: BP 141/77; PULSE 90; RESP 16; TEMP 36.8; O2SAT 98
[2020-05-30] MEDS: Acetaminophen 325 MG Tablet PO ×2 (09:36→13:37)
[2020-05-30] MEDS: cycloBENZAPRine HCl 10 MG Tablet PO (09:36)
[2020-05-30] MEDS: Ondansetron 4 MG/2 ML Vial IV (09:45)
[2020-05-30] MEDS: 0.9% Saline Lock 10 ML Syringe IV (09:45)
--- NOTE | 2020-05-30 09:48 | PN_ITS ---
Patient Problems: Active and Suspected Problems Spondylosis of lumbar spine (Acute) Subjective: Left leg feeling much better. Able to go to restroom now. Vitals/I&O's: Vital Signs Temp Pulse Resp BP Pulse Ox 36.8 C 90 16 141/77 H 98 05/30/20 05:30 05/30/20 05:30 05/30/20 05:30 05/30/20 05:30 05/30/20 05:30 Oxygen Flow Rate (L/min) 2 Oxygen Delivery Method Room Air Weight: 73.3 kg Body Mass Index (BMI) 29.5 Intake and Output for Last 24 Hours 05/28/20 05/29/20 05/30/20 23:59 23:59 23:59 Intake Total 2411.5 / 2411.5 4061.67 / 4461.67 700 / 700 Output Total 2350 / 2350 100 / 100 Balance 61.5 / 61.5 3961.67 / 4361.67 700 / 700 General: Alert, No apparent distress HEENT: Atraumatic, Normocephalic Extremities: No edema, No Calf Tenderness Skin: No rashes, No breakdown Musculoskeletal: No Tenderness to Palpation of Joints or Extremities, No Muscle Wasting Neurological: Motor Exam 5/5 strength throughout - in LE, Sensory exam intact to light touch and pain - in LE Psych/Mental Status: Normal Affect, Appropriate Current Medications Acetaminophen (Acetaminophen 325 Mg Tablet) 325 mg PO Q4H PRN PRN PRN Reason: pain 1-3 Last Admin: 05/30/20 09:36 Dose: 325 mg Documented by: Cyclobenzaprine HCl (Cyclobenzaprine Hcl 10 Mg Tablet) 5 - 10 mg PO TID PRN PRN PRN Reason: muscle spasms Last Admin: 05/30/20 09:36 Dose: 5 mg Documented by: Diltiazem HCl (Diltiazem Cd 180 Mg Capsule) 180 mg PO QHS [facility] Last Admin: 05/29/20 20:28 Dose: 180 mg Documented by: Enteral Nutritional Formula (Ensure Surgery 237 Ml Liquid) 237 ml PO TIDCM [facility] Last Admin: 05/30/20 08:44 Dose: Not Given Documented by: Morphine Sulfate (Morphine 4 Mg/Ml Syringe) 2 - 4 mg IV Q4H PRN PRN PRN Reason: Pain Score 7-10 Morphine Sulfate (Morphine 2 Mg/Ml Syringe) 2 - 4 mg IV Q4H PRN PRN PRN Reason: Pain Score 7-10 Ondansetron HCl (Ondansetron 4 Mg/2 Ml Vial) 4 mg IV Q6H PRN PRN PRN Reason: NAUSEA Last Admin: 05/30/20 09:45 Dose: 4 mg Documented by: Oxycodone HCl (Oxycodone 5 Mg Tablet) 5 mg PO Q4H PRN PRN PRN Reason: Pain Score 4-5 Oxycodone HCl (Oxycodone 5 Mg Tablet) 10 mg PO Q4H PRN PRN PRN Reason: Pain Score 6-10 Last Admin: 05/30/20 09:37 Dose: 10 mg Documented by: Sodium Chloride (0.9% Saline Lock 10 Ml Syringe) 10 - 40 ml IV UD PRN PRN Reason: SALINE FLUSH Last Admin: 05/30/20 09:45 Dose: 10 ml Documented by: Medical Necessity - Tobacco Use Smoking Status: Never smoker Assessment/Plan All Active Problems Spondylosis of lumbar spine (Acute) 1. left leg pain improved different than the pain she had earlier on 05/28 when I saw her radicular distribution Received a x1 dose of dexamethasone and ketorolac today DC cyclobenzaprine optimize oxycodone, DC [place] 2. Hypertension: Stable. 3. Status post bilateral L3-L4 laminectomies. Management per spine. Medically stable for discharge. Inpatient E&M: [id number] [facility] L1
[2020-05-30 10:30] VITALS: BP 124/57; PULSE 86; RESP 18; TEMP 36.7; O2SAT 94
[2020-05-30 13:45] VITALS: O2SAT 95
--- NOTE | 2020-05-30 21:23 | PCM.DC.SUM ---
Discharge Date and Diagnosis - Problem List Patient Problems: Active and Suspected Problems Spondylosis of lumbar spine (Acute) Date of Admission: 05/27/20 Date of Discharge: 05/30/20 - Primary Discharge Diagnosis Acute Problems: Active Problems Spondylosis of lumbar spine (Acute) Hospital Course and Treatment Hospitalist for medical management Operations: - - Lumbar 3 lumbar 4 laminectomy decompression Summary of Care Provided: The patient is a 59 year old F Who underwent L3 and L4 laminectomy on 05/27/20. She was subsequently admitted. Her drain and Houser catheter were removed on 05/28/20. Her pain was controlled and she progressed well with physical therapy. The hospitalist was consulted for medical management. She did have an episode of mild hypotension that was resolved with IV fluids.There were no significant medical issues. She was scheduled to be discharged on 05/28/20. However, she had an episode of increased pain and subsequent difficulty with mobilization. She was kept for pain control and continued observation. Her pain was controlled with medications. She was subsequently discharged on 05/30/20 to follow-up in clinic with Dr. Brown in 3 weeks for suture removal.[] Patient Problems: Active and Suspected Problems Spondylosis of lumbar spine (Acute) - Physical Exam Vitals/I&O's: Vital Signs Temp Pulse Resp BP Pulse Ox 98.0 F 86 18 124/57 H 95 05/30/20 10:30 05/30/20 10:30 05/30/20 10:30 05/30/20 10:30 05/30/20 13:45 Oxygen Flow Rate (L/min) 2 Oxygen Delivery Method Room Air Weight: 161 lb 9.581 oz Body Mass Index (BMI) 29.5 Intake and Output for Last 24 Hours 05/28/20 05/29/20 05/30/20 23:59 23:59 23:59 Intake Total 2411.5 / 2411.5 4061.67 / 4461.67 1300 / 1300 Output Total 2350 / 2350 100 / 100 Balance 61.5 / 61.5 3961.67 / 4361.67 1300 / 1300 Discharge Diet: No Restrictions Discharge Activity: - - No repetitive bending twisting or lifting greater than 5 pounds May shower in (days): 1 - Must cover incision with waterproof dressing to shower Weight Bearing Status: Weight bearing as tolerated Call your doctor if your incision/area has: Continuous Slow Oozing, Sudden Increased Bleeding, Increased Pain/ Swelling, Increased Redness, Foul Smelling Discharge, Swelling at the incision site Call your doctor if you observe: Fever of 101 or Higher, Coldness, Increased Pain, Numbness or Tingling, Change in Color, Inability to urinate, Inability to have a bowel movement, Using more than one pad per hour, Shortness of breath, Dizziness, Fainting spells, Swelling in the ankles, Chest pain, Prolonged hiccoughing, Increased palpitations (irregular heartbeat), Calf discomfort, Uncontrolled pain Change Dressing in (Days):: 1 - Daily dressing changes with iodine to incision Cleanse incision/area with: Do not get Incision Wet, Keep Dressing Clean & Dry Home Medications: Medications to take at Discharge Biotin 5,000 mcg SL 05/13/20 Cholecalciferol (Vitamin D3) [Vitamin D3] 05/13/20 Diltiazem [Cardizem] 180 mg PO QHS 05/13/20 Iron Carbonyl [Feosol] 45 mg PO 05/13/20 Magnesium 400 mg PO 05/13/20 Mecobalamin [B12 Active] QWEEK 05/13/20 Multivitamin with Iron [Daily Vitamin + Iron] 05/13/20 Zinc 05/13/20 Oxycodone HCl/Acetaminophen [Percocet 5/325] 1 - 2 tablet PO Q6H PRN PRN 7 Days #60 tablet 05/27/20 Ondansetron [Zofran Odt] 4 mg PO Q8H PRN PRN 30 Days #90 tablet 05/28/20 Following Prescriptions Were Given to Patient: Oxycodone HCl/Acetaminophen [Percocet 5/325] 1 - 2 tablet PO Q6H PRN PRN 7 Days #60 tablet PRN Reason: Pain Transmission Status: Received by [facility] Ondansetron [Zofran Odt] 4 mg PO Q8H PRN PRN 30 Days #90 tablet PRN Reason: Nausea Transmission Status: Received by [facility] Primary Care Physician: Lelia Garcia NP, MECHANICAL DESIGNER-C [Primary Care Provider] - Please Follow Up With: Kavon Brown DO - 3 weeks Medical Necessity - Tobacco Use Smoking Status: Never smoker Meaningful Use Info Meaningful Use Diagnoses (Choose all that apply): None applicable
== END 2020-05-30 15:15 | disposition home or self-care (01) ==
LOC: MS3 05-28 07:02
PROVIDERS: Anesthesiology; Internal Medicine; Admitting Provider Orthopaedic Surgery; PCP Nurse Practitioner Primary Care; Referring Provider Orthopaedic Surgery
PROC: (CPT 63030; principal; 2020-05-27 11:00)
DX: M47.816 Spondylosis without myelopathy or radiculopathy, lumbar region (principal); M48.061 Spinal stenosis, lumbar region without neurogenic claudication; M51.36 Other intervertebral disc degeneration, lumbar region; Z20.828 Contact with and (suspected) exposure to other viral communicable diseases; I10 Essential (primary) hypertension; E78.5 Hyperlipidemia, unspecified; Z98.84 Bariatric surgery status; Z79.899 Other long term (current) drug therapy; J45.909 Unspecified asthma, uncomplicated; I95.9 Hypotension, unspecified; M79.605 Pain in left leg
CPT/HCPCS: 63047; 63048; 36415; 71046; 72020; 76000; 80053; 84132; 85025; 87426; 96361; 96365; 96366; 96375; 96376; 97161; 97166; 99218; 99251; C9803; J7120; A4216; G0378; G0379; G0463; J2405

== ENCOUNTER → 2022-07-21 | Outpatient (CLI) | payer OTHER, SELFPAY ==
--- NOTE | 2022-07-21 | LES_PTH ---
PATIENT: PIERCE ABDULLAHI LOC: [facility] U#:[id number] AGE/SX: 61/F ROOM: RE07/21/[address]: Dr. Rm Brumfield MD : [id number] BED: DIS: 07/21/2022 SPEC #: [id number] RECD: 07/21/22 15:11 STATUS: ENEIDA REPrakash #: [id number] LINCOLN: 07/21/22 00:[address]: Rm Brumfield DEPT: SURGICAL PATHOLOGY RECD BY: Oscar Lewis ENTERED: 07/24/22 10:10 SP TYPE: Lesion OTHR DR: Lelia Garcia, BLINDMAKER-C Tissues: Skin of eyelid, NOS Procedures: Surgery Specimen Level IV HEADER OPERATION: Left lower lid lesion removal PRE-OP DIAGNOSIS: Left lower lid lesion TISSUE SUBMITTED: Left lower lid lesion MICROSCOPIC DIAGNOSIS Left lower eyelid lesion, biopsy: Consistent with eccrine cystoma. AM:alie 07/25/2022 MICROSCOPIC DESCRIPTION Slides are reviewed. GROSS DESCRIPTION Received in fixative is one container labeled with the patient's name and designated left lower lid. The specimen consists of a piece of haider-white skin measuring 0.4 x 0.3 x 0.1 cm. The entire specimen is submitted in one cassette. / SJ:rg TC:5 CPT: 24278
== END | disposition home or self-care (01) ==
LOC: LABSPEC 15:36
PROVIDERS: PCP Nurse Practitioner Primary Care; Referring Provider Ophthalmology; Visit Provider Ophthalmology
DX: D21.0 Benign neoplasm of connective and other soft tissue of head, face and neck (principal)
CPT/HCPCS: 88305

== ENCOUNTER → 2023-04-23 | Outpatient (CLI) | payer BC, SELFPAY ==
--- NOTE | 2023-04-23 14:55 | CT_ITS ---
STUDY: CT LEFT ELBOW WITHOUT CONTRAST REASON FOR EXAM: Female, 62 years old. Displaced fracture of head of left radius RADIATION DOSAGE (If Supplied By Facility): CTDIvol = ( 24.58 ) mGy, DLP = ( 468.41 ) mGycm TECHNIQUE: Transaxial CT imaging of the elbow was performed. Sagittal and coronal images were reconstructed. Individualized dose optimization techniques were used for this CT. COMPARISON: None. FINDINGS: There is a minimally depressed radial head fracture involving the radial head. This extends into the articular surface. There is a 2.9 mm depression at the level of the articular surface of the head of the radius. Normal radiocapitellar and ulnotrochlear articulations. Small joint effusion. CT/Extremity Upper without Contra IMPRESSION: Mildly depressed fracture of the radial head involving the lesser. The depression measures 2.9 mm. Small joint effusion. Electronically Signed: Gee Laboy MD at 15:35 EST ,
== END | disposition home or self-care (01) ==
PROVIDERS: PCP Nurse Practitioner Primary Care; Referring Provider Physician Assistant Surgical; Visit Provider Physician Assistant Surgical
DX: S52.121A Displaced fracture of head of right radius, initial encounter for closed fracture (principal)
CPT/HCPCS: 73200

== ENCOUNTER 2024-09-29 14:50 | Outpatient (CLI) | payer MEDICARE, SELFPAY ==
--- NOTE | 2024-09-29 15:03 | CT_ITS ---
PROCEDURE: LIMITED CHEST CT CARDIAC ONLY 09/29/2024 REASON FOR EXAM: CAD TECHNIQUE: LIMITED CHEST CT CARDIAC ONLY Coronal and Sagittal reconstruction series were provided. CONTRAST: None One or more dose reduction techniques were used (e.g., Automated exposure control, adjustment of the mA and/or kV according to patient size, use of iterative reconstruction technique). RADIATION DOSE SUMMARY: CTDlvol: 12 mGy DLP: 195 mGycm COMPARISON: May 19, 2020 FINDINGS: Cardiac calcium scoring was performed and will be reported separately. This is a limited evaluation of the surrounding noncardiac structures. Lymph nodes: None appear enlarged. Tracheobronchial tree: Limited but normal. Esophagus: Limited but normal. Lungs and pleura: No pleural effusion or pneumothorax. No mass or consolidation seen. Musculoskeletal: Limited but unremarkable. Upper abdomen: Partially imaged gastric surgery. Low-density mass in the left lobe liver is non-specific measuring 2.[address]/Limited Chest CT Cardiac Only IMPRESSION: No acute pulmonary abnormality. Postsurgical changes to the stomach. Non-specific mass left lobe liver. Consider nonemergent contrast-enhanced MRI for full characterization. In the absence of a known primary, and in a non cirrhotic liver such as this, most common lesion is hemangioma. Reading Location: [id number]
--- NOTE | 2024-09-30 08:27 | CA.SCORE ---
Calcium Scoring Date of Study:: 09/29/24 Indications Indications: CAD Coronary Calcium Scoring: High-resolution Computed Tomographic imaging of the chest was performed on [09/29/24 ], with particular attention paid to the coronary arteries. Images from the examination were analyzed for the presence and extent of coronary artery calcification , using coronary calcium quantification software. The patient tolerated the procedure well and there were no complications. The results of the coronary calcification analysis are provided below. Findings Coronary Artery Left Main (LM): 0 Left Anterior Descending (LAD): 3 Left Circumflex (LCX): 0 Right Coronary Artery (RCA): 9.8 Total Agatston Score: 12.8 Percentile Rankin-50% Calcium Scoring Interpretation: Different methods to categorize the overall amount of coronary plaque. Overall amount CAC SIS Visual of coronary plaque P1 Mild -100 <2 1-2 vessels with mild amount of plaque P2 Moderate 101-300 3-4 1-2 vessels with moderate amount, 3 vessels with mild amount of plaque P3 Severe 301-999 5-7 3 vessels with moderate amount, 1 vessel with severe amount of plaque P4 Extensive >1000 >8 2-3 vessels with severe amount of plaque Calcium Score: Mild: 1-2 vessels w/mild amount of plaque Conclusion: Mild single-vessel plaque disease
== END 2024-09-29 23:59 | disposition home or self-care (01) ==
PROVIDERS: PCP Nurse Practitioner Primary Care; Referring Provider Nurse Practitioner Primary Care; Visit Provider Nurse Practitioner Primary Care
DX: Z13.6 Encounter for screening for cardiovascular disorders (principal)
CPT/HCPCS: 75571; 76380